=== PATIENT | female | born 1960 | race Caucasian/White ===

== ENCOUNTER 2016-09-02 05:59 | Day surgery (SDC) | payer BC ==
[~2016-09-02] VITALS: Ht 167.6 cm; Wt 93.1 kg
[2016-09-02] VITALS (14 sets, daily range): BP systolic 133–188; BP diastolic 73–102; PULSE 57–72; TEMP 97.6
[2016-09-02 06:28] LABS: HEMATOCRIT 43.1 % (37.0-47.0); HEMOGLOBIN 14.8 g/dl (12.5-16.0); MEAN CELL VOLUME 84 fl (80.0-100.0); MEAN CORPUSCULAR HEMOGLOBIN 29 pg (27.0-31.0); MEAN CORPUSCULAR HGB CONC 34 g/dl (33.0-37.0); MEAN PLATELET VOLUME 10.8 fl (7.4-10.4); PLATELET COUNT 238 K/mm3 (130-400); RED BLOOD COUNT 5.16 M/mm3 (4.10-5.30); REDCELL DISTRIBUTION WIDTH-CV 12.6 % (11.5-14.5); WHITE BLOOD COUNT 10.9 K/mm3 (4.8-10.8)
[2016-09-02 06:31] LABS: PROTHROMBIN TIME 11.6 SECONDS (9.7-12.8)
[2016-09-02 06:38] LABS: CALCIUM 8.6 mg/dL (8.4-10.2); CREATININE, serum 0.68 mg/dL (0.52-1.25); POTASSIUM 4.4 mmol/L (3.4-5.0)
[2016-09-02] MEDS ORDERED: MULTIPLE VITAMI1 CAP PO (07:14)
[2016-09-02] MEDS ORDERED: ASPIRIN 81M81 MG/TA2 PO (10:36)
== END 2016-09-02 15:27 | disposition home or self-care (01) ==
LOC: COL.CAR 05:59
PROVIDERS: Internal Medicine Interventional Cardiology
DX: R07.9 Chest pain, unspecified (principal); R06.02 Shortness of breath; M79.604 Pain in right leg; M79.605 Pain in left leg; R60.0 Localized edema; I83.93 Asymptomatic varicose veins of bilateral lower extremities; I10 Essential (primary) hypertension
CPT/HCPCS: C1760; J2250; J3010; Q9967

== ENCOUNTER → 2016-09-12 | Outpatient (CLI) | payer BC ==
[~2016-09-12] MED LIST: ASPIRIN 81M81 MG/TA2 PO; MULTIPLE VITAMI1 CAP PO
[2016-09-12 12:07] LABS: BASO % 0.5 % (0.0-2.0); EOS # 0.2 (0.0-0.7); EOS % 2.5 % (0-4.0); GRAN # 4.4 (1.4-6.5); GRAN % 54.3 % (42.2-75.2); HEMATOCRIT 39.9 % (37.0-47.0); HEMOGLOBIN 13.2 g/dl (12.5-16.0); LYMPH # 2.9 (1.2-3.4); LYMPH % 36.1 % (20.0-51.0); MEAN CELL VOLUME 86 fl (80.0-100.0); MEAN CORPUSCULAR HEMOGLOBIN 28 pg (27.0-31.0); MEAN CORPUSCULAR HGB CONC 33 g/dl (33.0-37.0); MEAN PLATELET VOLUME 10.5 fl (7.4-10.4); MONO # 0.5 (0.1-0.6); MONO % 6.1 % (1.7-9.3); PLATELET COUNT 229 K/mm3 (130-400); RED BLOOD COUNT 4.64 M/mm3 (4.10-5.30); REDCELL DISTRIBUTION WIDTH-CV 13.2 % (11.5-14.5); WHITE BLOOD COUNT 8.1 K/mm3 (4.8-10.8)
[2016-09-12 12:09] LABS: PH 6 (5-8); SQUAMOUS EPITHELIAL 0-2 /hpf; URINE APPEARANCE Clear; URINE BACTERIA None Seen /hpf; URINE BILIRUBIN Negative (NEGATIVE); URINE BLOOD Negative (NEGATIVE); URINE COLOR Yellow; URINE GLUCOSE Negative (NEGATIVE); URINE KETONE Negative (NEGATIVE); URINE RBC 0-2 /hpf; URINE UROBILINOGEN Negative (NEGATIVE); URINE WBC 0-2 /hpf
[2016-09-12 12:30] LABS: ADJUSTED CALCIUM 8.6 mg/dL (8.4-10.2); ALBUMIN 3.6 gm/dL (3.5-5.0); CALCIUM 8.3 mg/dL (8.4-10.2); CREATININE, serum 0.78 mg/dL (0.52-1.25); TOTAL PROTEIN 6.5 gm/dL (6.4-8.2)
[2016-09-12 13:03] LABS: THYROID STIMULATING HORMONE 2.72 uIU/mL (0.465-4.680)
[2016-09-15 09:24] LABS: AMYLASE 56 U/L (30-110); LIPASE 256 U/L (23-300)
== END ==
LOC: COL.LAB 11:11
PROVIDERS: Family Medicine
DX: I10 Essential (primary) hypertension (principal); R59.1 Generalized enlarged lymph nodes; R07.9 Chest pain, unspecified

== ENCOUNTER 2017-03-16 02:24 | Emergency (ER) | payer BC ==
[~2017-03-16] VITALS: Ht 165.1 cm; Wt 87.2 kg
[2017-03-16 02:28] VITALS: TEMP 97.7
[2017-03-16 02:49] LABS: COLLECTION METHOD CLEAN CATCH
[2017-03-16 02:52] LABS: BASO % 0.3 % (0.0-2.0); EOS # 0.2 (0.0-0.7); EOS % 1.8 % (0-4.0); GRAN # 8.2 (1.4-6.5); HEMATOCRIT 44.8 % (37.0-47.0); HEMOGLOBIN 15.2 g/dl (12.5-16.0); LYMPH # 2.7 (1.2-3.4); LYMPH % 22.5 % (20.0-51.0); MEAN CELL VOLUME 83 fl (80.0-100.0); MEAN CORPUSCULAR HEMOGLOBIN 28 pg (27.0-31.0); MEAN CORPUSCULAR HGB CONC 34 g/dl (33.0-37.0); MEAN PLATELET VOLUME 10.6 fl (7.4-10.4); MONO # 0.7 (0.1-0.6); PLATELET COUNT 245 K/mm3 (130-400); RED BLOOD COUNT 5.37 M/mm3 (4.10-5.30); WHITE BLOOD COUNT 11.9 K/mm3 (4.8-10.8)
[2017-03-16] MEDS ORDERED: PROTONIX 40MG T40 MG PO (02:52)
[2017-03-16] MEDS ORDERED: CARTIA XT240 MG PO (02:52)
[2017-03-16] MEDS ORDERED: RANEXA1000 MG PO (02:53)
[2017-03-16 02:56] LABS: MUCOUS Present /lpf; PH 6 (5-8); SQUAMOUS EPITHELIAL 0-2 /hpf; URINE APPEARANCE Clear; URINE BACTERIA Rare /hpf; URINE BILIRUBIN Negative (NEGATIVE); URINE BLOOD 1+ (NEGATIVE); URINE COLOR Yellow; URINE GLUCOSE Negative (NEGATIVE); URINE KETONE Negative (NEGATIVE); URINE LEUKOCYTE ESTERASE Negative (NEGATIVE); URINE PROTEIN(semi-quant) Negative (NEGATIVE); URINE RBC 0-2 /hpf; URINE UROBILINOGEN Negative (NEGATIVE); URINE WBC 0-2 /hpf
[2017-03-16 03:05] LABS: ADJUSTED CALCIUM 8.9 mg/dL (8.4-10.2); ALBUMIN 4.8 gm/dL (3.5-5.0); BILIRUBIN,TOTAL 0.7 mg/dL (0.0-1.0); CALCIUM 9.5 mg/dL (8.4-10.2); CREATININE, serum 0.81 mg/dL (0.52-1.25); POTASSIUM 3.8 mmol/L (3.4-5.0); TOTAL PROTEIN 8.1 gm/dL (6.4-8.2)
[2017-03-16] MEDS ORDERED: ZOFRAN 4MG T4 MG/TAB PO (04:19)
[2017-03-16] MEDS ORDERED: FLAGYL500 MG PO (04:19)
[2017-03-16] MEDS ORDERED: NORCO 325 MG-51 TAB PO (04:19)
[2017-03-16 05:30] VITALS: BP 124/85; PULSE 63
== END 2017-03-16 05:36 | disposition home or self-care (01) ==
LOC: COL.ER 02:24
PROVIDERS: Emergency Medicine
DX: K50.00 Crohn's disease of small intestine without complications (principal); I10 Essential (primary) hypertension; K21.9 Gastro-esophageal reflux disease without esophagitis; Z90.49 Acquired absence of other specified parts of digestive tract
CPT/HCPCS: C9113; J1170; J2405; J2765; J7030; Q9967

== ENCOUNTER → 2017-04-03 | Outpatient (CLI) | payer BC ==
[~2017-04-03] MED LIST changes: +CARTIA XT240 MG PO; +FLAGYL500 MG PO; +NORCO 325 MG-51 TAB PO; +PROTONIX 40MG T40 MG PO; +RANEXA1000 MG PO; +ZOFRAN 4MG T4 MG/TAB PO
== END ==
LOC: MC.RAD 14:16
DX: N63.10 Unspecified lump in the right breast, unspecified quadrant (principal)

== ENCOUNTER 2017-04-09 00:43 | Emergency (ER) | payer BC ==
[~2017-04-09] VITALS: Ht 165.1 cm; Wt 86.4 kg
[2017-04-09] MEDS ORDERED: PREDNISONE20 MG PO (01:48)
[2017-04-09 01:54] VITALS: BP 160/91; PULSE 84
== END 2017-04-09 01:55 | disposition home or self-care (01) ==
LOC: COL.ER 00:43
DX: T78.40XA Allergy, unspecified, initial encounter (principal); I10 Essential (primary) hypertension
CPT/HCPCS: J1200; J2930; J7030

== ENCOUNTER 2017-06-21 00:06 | Observation (INO) | payer BC ==
[~2017-06-21] VITALS: Ht 165.1 cm; Wt 90.6 kg
[2017-06-21] VITALS (9 sets, daily range): BP systolic 104–129; BP diastolic 53–71; PULSE 58–76; TEMP 97.5–98.8
[~2017-06-21 00:06] MED LIST changes: +PREDNISONE20 MG PO
[2017-06-21 01:00] LABS: BASO % 0.2 % (0.0-2.0); EOS # 0.3 (0.0-0.7); EOS % 1.9 % (0-4.0); GRAN % 76.9 % (42.2-75.2); HEMATOCRIT 43.1 % (37.0-47.0); HEMOGLOBIN 14.7 g/dl (12.5-16.0); LYMPH # 2.1 (1.2-3.4); LYMPH % 15.8 % (20.0-51.0); MEAN CELL VOLUME 84 fl (80.0-100.0); MEAN CORPUSCULAR HEMOGLOBIN 29 pg (27.0-31.0); MEAN CORPUSCULAR HGB CONC 34 g/dl (33.0-37.0); MEAN PLATELET VOLUME 10.8 fl (7.4-10.4); MONO # 0.6 (0.1-0.6); MONO % 4.9 % (1.7-9.3); PLATELET COUNT 227 K/mm3 (130-400); RED BLOOD COUNT 5.15 M/mm3 (4.10-5.30); REDCELL DISTRIBUTION WIDTH-CV 12.5 % (11.5-14.5)
[2017-06-21 01:12] LABS: ALANINE AMINOTRANSFERASE 42 U/L (9-52); ALBUMIN 4.3 gm/dL (3.5-5.0); ALKALINE PHOSPHATASE 77 U/L (50-136); ANION GAP 9 mmol/L (7-16); AST,SGOT 34 U/L (15-37); BILIRUBIN,TOTAL 0.5 mg/dL (0.0-1.0); BLOOD UREA NITROGEN 14 mg/dL (7-17); C-REACTIVE PROTEIN 0.7 mg/dL (0.0-0.9); CALCIUM 9.1 mg/dL (8.4-10.2); CARBON DIOXIDE 21 mmol/L (22-30); CHLORIDE 109 mmol/L (98-107); CREATININE, serum 0.75 mg/dL (0.52-1.25); GLUCOSE 150 mg/dL (74-106); LIPASE 93 U/L (23-300); POTASSIUM 3.9 mmol/L (3.4-5.0); SODIUM 139 mmol/L (137-145); TOTAL PROTEIN 7.3 gm/dL (6.4-8.2)
[2017-06-21 01:21] LABS: TROPONIN-I < 0.012 ng/mL (0.000-0.034)
[2017-06-22 00:47] LABS: COMPLEMENT-C4 21 mg/dL (18-55)
[2017-06-22 04:02] VITALS: BP 103/54; PULSE 65; TEMP 98.4
[2017-06-22 06:59] LABS: BASO % 0.1 % (0.0-2.0); GRAN # 9.4 (1.4-6.5); GRAN % 87.7 % (42.2-75.2); HEMATOCRIT 37.3 % (37.0-47.0); LYMPH # 1.1 (1.2-3.4); LYMPH % 10.1 % (20.0-51.0); MEAN CELL VOLUME 86 fl (80.0-100.0); MEAN CORPUSCULAR HEMOGLOBIN 28 pg (27.0-31.0); MEAN CORPUSCULAR HGB CONC 33 g/dl (33.0-37.0); MEAN PLATELET VOLUME 11.1 fl (7.4-10.4); MONO # 0.2 (0.1-0.6); MONO % 1.4 % (1.7-9.3); PLATELET COUNT 196 K/mm3 (130-400); RED BLOOD COUNT 4.33 M/mm3 (4.10-5.30); REDCELL DISTRIBUTION WIDTH-CV 12.5 % (11.5-14.5)
[2017-06-22 07:14] LABS: CALCIUM 8.2 mg/dL (8.4-10.2); CREATININE, serum 0.63 mg/dL (0.52-1.25); POTASSIUM 3.9 mmol/L (3.4-5.0)
[2017-06-22 07:23] LABS: HEMOGLOBIN 12.3 g/dl (12.5-16.0)
[2017-06-22 09:21] VITALS: BP 113/63; PULSE 61; TEMP 98.1
[2017-06-22 13:25] VITALS: BP 131/73; PULSE 92; TEMP 98.6
[2017-06-22] MEDS ORDERED: PREDNISONE20 MG PO (14:04)
[2017-06-22] MEDS ORDERED: FLAGYL500 MG PO (14:05)
[2017-06-22] MEDS ORDERED: CIPRO 500MG TA500 MG PO (14:06)
[2017-06-26 15:28] LABS: COMPLEMENT C1 ESTERASE ANTIGEN 24 mg/dL (19 - 37)
[2017-06-26 16:03] LABS: SACCHAROMYCES CER IGA XXX; SACCHAROMYCES CER IGG XXX
== END 2017-06-22 15:50 | disposition home or self-care (01) ==
LOC: COL.ER 00:06 → SURG 02:01
PROVIDERS: Emergency Medicine; Internal Medicine Gastroenterology; Nurse Practitioner
DX: K50.00 Crohn's disease of small intestine without complications (principal); R10.9 Unspecified abdominal pain; I20.9 Angina pectoris, unspecified; I10 Essential (primary) hypertension; K21.0 Gastro-esophageal reflux disease with esophagitis; K44.9 Diaphragmatic hernia without obstruction or gangrene; Z80.9 Family history of malignant neoplasm, unspecified; Z88.8 Allergy status to other drugs, medicaments and biological substances; K58.9 Irritable bowel syndrome, unspecified; Z85.828 Personal history of other malignant neoplasm of skin
CPT/HCPCS: 99239; J0744; J1170; J1650; J2405; J2550; J2765; J2930; J7030; Q9967

== ENCOUNTER 2018-06-01 13:33 | Emergency (ER) | payer BC ==
[~2018-06-01] VITALS: Ht 167.6 cm; Wt 86.4 kg
[~2018-06-01 13:33] MED LIST changes: +CIPRO 500MG TA500 MG PO
[2018-06-01 13:37] VITALS: TEMP 98
[2018-06-01 14:24] LABS: BASO % 0.2 % (0.0-2.0); EOS # 0.2 (0.0-0.7); GRAN % 60.7 % (42.2-75.2); HEMATOCRIT 42.8 % (37.0-47.0); HEMOGLOBIN 14.4 g/dl (12.5-16.0); LYMPH # 1.4 (1.2-3.4); LYMPH % 27.7 % (20.0-51.0); MEAN CELL VOLUME 83 fl (80.0-100.0); MEAN CORPUSCULAR HEMOGLOBIN 28 pg (27.0-31.0); MEAN CORPUSCULAR HGB CONC 34 g/dl (33.0-37.0); MEAN PLATELET VOLUME 10.4 fl (7.4-10.4); MONO # 0.4 (0.1-0.6); PLATELET COUNT 177 K/mm3 (130-400); RED BLOOD COUNT 5.14 M/mm3 (4.10-5.30); REDCELL DISTRIBUTION WIDTH-CV 12.3 % (11.5-14.5)
[2018-06-01 14:48] LABS: ALANINE AMINOTRANSFERASE 29 U/L (9-52); ALKALINE PHOSPHATASE 94 U/L (50-136); ANION GAP 8 mmol/L (7-16); AST,SGOT 28 U/L (15-37); BILIRUBIN,TOTAL 0.5 mg/dL (0.0-1.0); BLOOD UREA NITROGEN 15 mg/dL (7-17); CALCIUM 9.3 mg/dL (8.4-10.2); CARBON DIOXIDE 24 mmol/L (22-30); CHLORIDE 106 mmol/L (98-107); CREATININE, serum 0.88 mg/dL (0.52-1.25); GLUCOSE 126 mg/dL (74-106); LIPASE 37 U/L (23-300); POTASSIUM 3.7 mmol/L (3.4-5.0); SODIUM 139 mmol/L (137-145); TOTAL PROTEIN 7.3 gm/dL (6.4-8.2)
[2018-06-01 15:01] LABS: TROPONIN-I < 0.012 ng/mL (0.000-0.035)
[2018-06-01 17:40] VITALS: BP 132/66; PULSE 73
== END 2018-06-01 17:45 | disposition home or self-care (01) ==
LOC: COL.ER 13:33
PROVIDERS: Nurse Practitioner
DX: J06.9 Acute upper respiratory infection, unspecified (principal); R06.02 Shortness of breath; I10 Essential (primary) hypertension; Z90.710 Acquired absence of both cervix and uterus; Z90.49 Acquired absence of other specified parts of digestive tract
CPT/HCPCS: J7030; Q9967

== ENCOUNTER 2018-11-26 14:16 | Emergency (ER) | payer BC ==
[~2018-11-26] VITALS: Ht 165.1 cm; Wt 86.4 kg
[2018-11-26 14:19] VITALS: TEMP 96.9
[2018-11-26 15:08] LABS: COLLECTION METHOD CLEAN CATCH
[2018-11-26 15:12] LABS: BASO % 0.3 % (0.0-2.0); EOS # 0.1 (0.0-0.7); EOS % 1.3 % (0-4.0); GRAN # 3.1 (1.4-6.5); GRAN % 51.5 % (42.2-75.2); HEMATOCRIT 39.4 % (37.0-47.0); HEMOGLOBIN 13.6 g/dl (12.5-16.0); LYMPH # 2.4 (1.2-3.4); LYMPH % 40.3 % (20.0-51.0); MEAN CELL VOLUME 83 fl (80.0-100.0); MEAN CORPUSCULAR HEMOGLOBIN 29 pg (27.0-31.0); MEAN CORPUSCULAR HGB CONC 35 g/dl (33.0-37.0); MEAN PLATELET VOLUME 11.3 fl (7.4-10.4); MONO # 0.4 (0.1-0.6); MONO % 6.1 % (1.7-9.3); PLATELET COUNT 193 K/mm3 (130-400); RED BLOOD COUNT 4.76 M/mm3 (4.10-5.30); REDCELL DISTRIBUTION WIDTH-CV 12.5 % (11.5-14.5)
[2018-11-26 15:18] LABS: MUCOUS Present /lpf; PH 7 (5-8); SQUAMOUS EPITHELIAL 0-2 /hpf; URINE APPEARANCE Clear; URINE BACTERIA Occasional /hpf; URINE BILIRUBIN Negative (NEGATIVE); URINE BLOOD Negative (NEGATIVE); URINE COLOR Straw; URINE GLUCOSE Negative (NEGATIVE); URINE KETONE Trace (NEGATIVE); URINE LEUKOCYTE ESTERASE Negative (NEGATIVE); URINE NITRATE Negative (NEGATIVE); URINE PROTEIN(semi-quant) Negative (NEGATIVE); URINE RBC 0-2 /hpf; URINE UROBILINOGEN Negative (NEGATIVE)
[2018-11-26 15:25] LABS: ALBUMIN 4.1 gm/dL (3.5-5.0); C-REACTIVE PROTEIN 0.6 mg/dL (0.0-0.9); CALCIUM 8.9 mg/dL (8.4-10.2); CREATININE, serum 0.67 (0.52-1.25); PHOSPHOROUS 1.5 mg/dL (2.5-4.5); POTASSIUM 3.3 mmol/L (3.4-5.0); TOTAL PROTEIN 7.2 gm/dL (6.4-8.2)
[2018-11-26 18:30] VITALS: BP 130/84; PULSE 80
== END 2018-11-26 18:30 | disposition short-term general hospital (02) ==
LOC: COL.ER 14:16
PROVIDERS: Emergency Medicine
DX: R20.0 Anesthesia of skin (principal); R29.810 Facial weakness; I10 Essential (primary) hypertension; G43.909 Migraine, unspecified, not intractable, without status migrainosus; K21.9 Gastro-esophageal reflux disease without esophagitis; Z90.710 Acquired absence of both cervix and uterus; Z90.49 Acquired absence of other specified parts of digestive tract; Z90.89 Acquired absence of other organs
CPT/HCPCS: J0780; J1200; J1885; J2270; J2405; J7030; Q9967

== ENCOUNTER 2018-11-29 14:36 | Emergency (ER) | payer BC ==
[~2018-11-29] VITALS: Ht 165.1 cm; Wt 86.4 kg
[2018-11-29 14:43] VITALS: TEMP 97.6
[2018-11-29 15:27] LABS: BASO % 0.4 % (0.0-2.0); EOS # 0.1 (0.0-0.7); EOS % 1.3 % (0-4.0); GRAN # 3.1 (1.4-6.5); GRAN % 58.9 % (42.2-75.2); HEMATOCRIT 42.7 % (37.0-47.0); HEMOGLOBIN 14.3 g/dl (12.5-16.0); LYMPH # 1.7 (1.2-3.4); LYMPH % 31.5 % (20.0-51.0); MEAN CELL VOLUME 85 fl (80.0-100.0); MEAN CORPUSCULAR HEMOGLOBIN 28 pg (27.0-31.0); MEAN CORPUSCULAR HGB CONC 34 g/dl (33.0-37.0); MEAN PLATELET VOLUME 11.3 fl (7.4-10.4); MONO # 0.4 (0.1-0.6); MONO % 7.3 % (1.7-9.3); PLATELET COUNT 211 K/mm3 (130-400); RED BLOOD COUNT 5.03 M/mm3 (4.10-5.30)
[2018-11-29 15:35] LABS: ALANINE AMINOTRANSFERASE 18 U/L (9-52); ALBUMIN 4.2 gm/dL (3.5-5.0); ALKALINE PHOSPHATASE 77 U/L (50-136); ANION GAP 9 mmol/L (7-16); AST,SGOT 29 U/L (15-37); BILIRUBIN,TOTAL 0.5 mg/dL (0.0-1.0); BLOOD UREA NITROGEN 10 mg/dL (7-17); C-REACTIVE PROTEIN 1.3 mg/dL (0.0-0.9); CALCIUM 8.9 mg/dL (8.4-10.2); CARBON DIOXIDE 23 mmol/L (22-30); CHLORIDE 109 mmol/L (98-107); CREATININE, serum 0.83 (0.52-1.25); GLUCOSE 101 mg/dL (74-106); LIPASE 101 U/L (23-300); SODIUM 140 mmol/L (137-145); TOTAL PROTEIN 7.5 gm/dL (6.4-8.2)
[2018-11-29 15:46] LABS: TROPONIN-I < 0.012 ng/mL (0.000-0.035)
[2018-11-29 15:59] LABS: COLLECTION METHOD CLEAN CATCH
[2018-11-29 16:57] LABS: PH 8 (5-8); SQUAMOUS EPITHELIAL 0-2 /hpf; URINE APPEARANCE Clear; URINE BACTERIA None Seen /hpf; URINE BILIRUBIN Negative (NEGATIVE); URINE BLOOD Negative (NEGATIVE); URINE COLOR Yellow; URINE GLUCOSE Negative (NEGATIVE); URINE KETONE Negative (NEGATIVE); URINE LEUKOCYTE ESTERASE Negative (NEGATIVE); URINE NITRATE Negative (NEGATIVE); URINE PROTEIN(semi-quant) Negative (NEGATIVE); URINE RBC None Seen /hpf; URINE UROBILINOGEN Negative (NEGATIVE)
[2018-11-29] MEDS ORDERED: CATAPRES 0.1MG0.1 MG PO (18:38)
[2018-11-29 19:10] VITALS: BP 140/96; PULSE 57
== END 2018-11-29 19:11 | disposition home or self-care (01) ==
LOC: COL.ER 14:36
PROVIDERS: Emergency Medicine
DX: G89.29 Other chronic pain (principal); R10.32 Left lower quadrant pain; I10 Essential (primary) hypertension; K21.9 Gastro-esophageal reflux disease without esophagitis; Z90.710 Acquired absence of both cervix and uterus; Z86.73 Personal history of transient ischemic attack (TIA), and cerebral infarction without residual deficits; Z90.49 Acquired absence of other specified parts of digestive tract; Z90.89 Acquired absence of other organs
CPT/HCPCS: J1170; J2405; J7030

== ENCOUNTER → 2018-12-14 | Outpatient (CLI) | payer BC ==
[~2018-12-14] MED LIST changes: +CATAPRES 0.1MG0.1 MG PO
== END ==
LOC: COL.RAD 07:45
DX: K52.9 Noninfective gastroenteritis and colitis, unspecified (principal); K30 Functional dyspepsia
CPT/HCPCS: A9541

== ENCOUNTER → 2019-01-09 | Outpatient (CLI) | payer BC | LOC: COL.LAB 11:58 | DX: R10.9 Unspecified abdominal pain (principal); R19.7 Diarrhea, unspecified ==

== ENCOUNTER → 2020-04-06 | Outpatient (CLI) | payer BC | LOC: MC.RAD 03-12 10:00 | DX: N63.20 Unspecified lump in the left breast, unspecified quadrant (principal) ==

== ENCOUNTER → 2022-08-24 | Outpatient (CLI) | payer BC ==
[~2022-08-24] MED LIST changes: +PERCOCET 325 MG1 TA2 PO
== END ==
LOC: MHCPAIN 10:50
DX: M47.896 Other spondylosis, lumbar region (principal); M54.16 Radiculopathy, lumbar region; M25.511 Pain in right shoulder; M54.2 Cervicalgia; M54.6 Pain in thoracic spine
CPT/HCPCS: G0463

== ENCOUNTER 2024-03-29 16:43 | Emergency (ER) | payer BC ==
[~2024-03-29] VITALS: Ht 165.1 cm; Wt 84.1 kg
[2024-03-29 16:48] VITALS: TEMP 97.9
[2024-03-29 17:19] LABS: BASO % 0.4 % (0.0-2.0); EOS # 0.2 K/mm3 (0.0-0.7); EOS % 1.5 % (0.0-4.0); GRAN # 6.7 K/mm3 (1.4-6.5); GRAN % 67.1 % (42.2-75.2); HEMATOCRIT 45.7 % (37.0-47.0); HEMOGLOBIN 15.3 g/dl (12.5-16.0); LYMPH # 2.3 K/mm3 (1.2-3.4); LYMPH % 23.6 % (20.0-51.0); MEAN CELL VOLUME 85 fl (80.0-100.0); MEAN CORPUSCULAR HEMOGLOBIN 29 pg (27-31); MEAN CORPUSCULAR HGB CONC 34 g/dl (33.0-37.0); MEAN PLATELET VOLUME 10.3 fl (7.4-10.4); MONO # 0.7 K/mm3 (0.1-0.6); PLATELET COUNT 229 K/mm3 (130-400); RED BLOOD COUNT 5.37 M/mm3 (4.10-5.30); REDCELL DISTRIBUTION WIDTH-CV 12.5 % (11.5-14.5)
[2024-03-29 17:21] LABS: COLLECTION METHOD CLEAN CATCH
[2024-03-29 17:30] LABS: URINE APPEARANCE CLEAR (CLEAR/HAZY); URINE BLOOD NEGATIVE (NEGATIVE); URINE COLOR Dark Yellow (YELLOW); URINE GLUCOSE NEGATIVE (NEGATIVE); URINE KETONE TRACE (NEGATIVE); URINE NITRATE NEGATIVE (NEGATIVE); URINE PROTEIN(semi-quant) NEGATIVE (NEGATIVE)
[2024-03-29] MEDS ORDERED: NS 1,000 ML IV ONE (17:30)
[2024-03-29] MEDS ORDERED: Morphine 4 MG/ML VIAL IV ONE ×2 (17:30→18:45)
[2024-03-29 17:34] LABS: ALBUMIN 3.9 g/dL (3.4-4.8); BILIRUBIN,TOTAL 1.3 mg/dL (0.2-1.2); C-REACTIVE PROTEIN 6.71 mg/dL (0.00-0.50); CALCIUM 9.3 mg/dL (8.4-10.2); CREATININE, serum 0.91 mg/dL (0.57-1.11); POTASSIUM 3.8 mEq/L (3.5-4.5); TOTAL PROTEIN 7.9 g/dl (6.2-8.1)
[2024-03-29] MEDS ORDERED: Iohexol 300 - 100 ML VIAL IV ONE (18:02)
[2024-03-29] MEDS ORDERED: NS 50 ML IV ONE (18:03)
[2024-03-29] MEDS ORDERED: FLAGYL500 MG PO (18:32)
[2024-03-29] MEDS ORDERED: CIPRO 500MG TA500 MG PO (18:32)
[2024-03-29] MEDS ORDERED: Home HYDROcodone/Acetaminophen 5/325 MG #4 TABS/PACK PO ONE (18:45)
[2024-03-29] MEDS ORDERED: Ciprofloxacin 500 MG TAB PO ONE (18:45)
[2024-03-29] MEDS ORDERED: Ketorolac 30 MG/ML VIAL IV ONE (18:45)
[2024-03-29] MEDS ORDERED: metroNIDAZOLE 250 MG TAB PO ONE (18:45)
[2024-03-29] MEDS ORDERED: NORCO 325 MG-51 TAB PO (18:46)
[2024-03-29 19:18] VITALS: BP 169/98; PULSE 76
== END 2024-03-29 19:18 | disposition home or self-care (01) ==
LOC: COL.ER 16:43
PROVIDERS: Physician Assistant
DX: K57.92 Diverticulitis of intestine, part unspecified, without perforation or abscess without bleeding (principal); Z90.710 Acquired absence of both cervix and uterus; Z90.49 Acquired absence of other specified parts of digestive tract; Z86.73 Personal history of transient ischemic attack (TIA), and cerebral infarction without residual deficits
CPT/HCPCS: J1885; J2270; J7030; Q9967